=== PATIENT | female | born 1980 | race Hispanic/Latino ===

== ENCOUNTER 2019-01-02 22:00 | Emergency (ER) | payer SELFPAY ==
--- NOTE | 2019-01-03 00:20 | XRay Report ---
RIGHT ANKLE, 3 VIEWS 01/02/2019 INDICATION / CLINICAL INFORMATION: right ankle injury. COMPARISON: None available. FINDINGS: Small ascitic densities are identified at the level of the distal fibula. These are identified only i n one projection and could represent either avulsion injury or accessory ossicles. There is apparent soft tissue swelling over the lateral malleolus, correlate with the location of pat ient's symptoms. Signer Name: Frandy Cox MD Signed: 01/03/2019 12:16 AM Workstation Name: [id number]
[2019-01-03] MEDS ORDERED: NORCO 5/325 PO ONE (02:17)
--- NOTE | 2019-01-03 04:18 | Emergency Department Report ---
ED Lower Extremity HPI - General Chief Complaint: Extremity Injury, Lower Stated Complaint: ANKLE INJURY Time Seen by Provider: 01/03/19 02:15 Source: patient Mode of arrival: Ambulatory Limitations: No Limitations - History of Present Illness Initial Comments: pt is s 38 y/o w/f who presents s/p glf today cause eversion or right lateral ankle now with 5/10 right lateral ankle pain and swelling with dorsal foot swelling pt states unable to bear weight, there is no open wound no bleeding no abrasion. no numbness moderate tingling MD Complaint: ankle injury Onset/Timin -: hour(s) Injury: Ankle: Right Type of Injury: eversion Place: street/outdoors Severity: moderate Severity scale (0 -10): 5 Improves With: rest Worsens With: weight bearing, movement, palpation Context: fall Associated Symptoms: snap/pop sensation, swelling, tingling, unable to bear weight. denies: numbness - Related Data Previous Rx's Medication Instructions Recorded Last Taken Type HYDROcodone/APAP 5-325 [[place] 1 each PO Q6HR PRN #12 tablet 01/03/19 Unknown Rx 5-325 mg TAB] Allergies Allergy/AdvReac Type Severity Reaction Status Date / Time No Known Allergies Allergy Unverified 01/02/19 22:56 ED Review of Systems ROS: Stated complaint: ANKLE INJURY Other details as noted in HPI Constitutional: denies: chills, fever Eyes: denies: eye pain, eye discharge, vision change ENT: denies: ear pain, throat pain Respiratory: denies: cough, shortness of breath, wheezing Cardiovascular: denies: chest pain, palpitations Endocrine: no symptoms reported Gastrointestinal: denies: abdominal pain, nausea, diarrhea Genitourinary: denies: urgency, dysuria, discharge Musculoskeletal: joint swelling Skin: denies: rash, lesions Neurological: denies: headache, weakness, paresthesias Psychiatric: denies: anxiety, depression Hematological/Lymphatic: denies: easy bleeding, easy bruising ED Past Medical Hx - Past Medical History Previous Medical History?: Yes Additional medical history: hypothyroid - Surgical History Past Surgical History?: Yes Additional Surgical History: 1 - Social History Smoking Status: Never Smoker Substance Use Type: None - Medications Home Medications: Home Medications Medication Instructions Recorded Confirmed Last Taken Type HYDROcodone/APAP 5-325 [[place] 1 each PO Q6HR PRN #12 tablet 01/03/19 Unknown Rx 5-325 mg TAB] ED Physical Exam - General Limitations: No Limitations General appearance: alert, in no apparent distress - Head Head exam: Present: atraumatic, normocephalic - Eye Eye exam: Present: normal appearance - ENT ENT exam: Present: mucous membranes moist - Neck Neck exam: Present: normal inspection. Absent: tenderness, meningismus, full ROM, lymphadenopathy, thyromegaly - Respiratory Respiratory exam: Present: normal lung sounds bilaterally. Absent: respiratory distress, wheezes, rhonchi, chest wall tenderness - Cardiovascular Cardiovascular Exam: Present: regular rate, normal rhythm, normal heart sounds. Absent: systolic murmur, diastolic murmur, rubs, gallop - GI/Abdominal GI/Abdominal exam: Present: soft, normal bowel sounds. Absent: distended, tenderness, bruit, hernia - Rectal Rectal exam: Present: deferred - Extremities Exam Extremities exam: Present: full ROM, tenderness, joint swelling (right lateral ankle pain and swelling ). Absent: normal capillary refill, pedal edema, calf tenderness - Expanded Lower Extremity Exam Right Ankle exam: Present: full ROM, tenderness, swelling, ecchymosis. Absent: abrasion, laceration, deformity, crepidus, dislocation, erythema, anterior draw sign Foot/Toe exam: Present: full ROM, swelling, ecchymosis. Absent: tenderness, abrasion, laceration, deformity, crepidus, dislocation, erythema, amputation, puncture wound, foreign body, calcaneal tenderness, tenderness at base of 5th metatarsal, nail avulsion, subungual hematoma Neuro vascular tendon exam: Present: no vascular compromise. Absent: pulse deficit, motor deficit, sensory deficit, tendon deficit, pallor, foot drop - Back Exam Back exam: Present: normal inspection, full ROM. Absent: tenderness, CVA tenderness (R), CVA tenderness (L), muscle spasm, paraspinal tenderness, vertebral tenderness, rash noted - Neurological Exam Neurological exam: Present: alert, oriented X3, CN II-XII intact, normal gait, reflexes normal - Expanded Neurological Exam Expanded Patient oriented to: Present: person, place, time Speech: Present: fluid speech Cranial nerves: EOM's Intact: Normal, Gag Reflex: Normal, Tongue Deviation: Normal, Nystagmus: Normal, Facial Sensation: Normal Cerebellar function: Finger to Nose: Normal, Heel to Kwon: Normal, Romberg: Normal Upper motor neuron: Eber Neglect: Normal, Pronator Drift: Normal, Babinski Sign: Normal, Sensory Extinction: Normal Sensory exam: Lower Extremity Light Touch: Normal, Lower Extremity Pin Prick: Normal, Lower Extremity Temperature: Normal, LE 2 Point Discrimination: Normal Motor strength exam: RLE: 5, LLE: 5 DTR: knee (R): 2+, knee (L): 2+, ankle (R): 2+, ankle (L): 2+ Best Eye Response ([place]): (4) open spontaneously Best Motor Response ([place]): (6) obeys commands Best Verbal Response ([place]): (5) oriented [place] Total: 15 - Psychiatric Psychiatric exam: Present: normal affect, normal mood - Skin Skin exam: Present: warm, dry, intact, normal color. Absent: rash ED Course Vital Signs 01/02/19 01/03/19 22:50 02:45 Temperature 98.3 F Pulse Rate 97 H Respiratory 18 18 Rate Blood Pressure 154/86 O2 Sat by Pulse 100 Oximetry ED Lower Extremity MDM - Radiology Data Radiology results: report reviewed, image reviewed Ordering Physician: LISA RIGGINS MD Date of Service: 01/02/19 Procedure(s): XR ankle 3+V RT Accession Number(s): [id number] cc: ED MD VAISHNAVI Fluoro Time In Minutes: RIGHT ANKLE, 3 VIEWS 01/02/2019 INDICATION / CLINICAL INFORMATION: right ankle injury. COMPARISON: None available. FINDINGS: Small ascitic densities are identified at the level of the distal fibula. These are identified only in one projection and could represent either avulsion injury or accessory ossicles. There is apparent soft tissue swelling over the lateral malleolus, correlate with the location of patient's symptoms. Signer Name: Frandy Cox MD Signed: 01/03/2019 12:16 AM Workstation Name: [id number] Transcribed By: SUKHDEEP Dictated By: Frandy Cox MD Electronically Authenticated By: Frandy Cox MD Signed Date/Time: 01/03/19 0016 DD/ TD/TT: - Medical Decision Making xray possible closed distal fibula avulsion , plan: spling short leg paris pain is improved with medications given in ed, pt demonstrated safe use of crutches, splint will be completed prior dc to home pt demonstrated safe use of crutches. pt dc'd to home in stable condition at this time. 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 Critical care attestation.: If time is entered above; I have spent that time in minutes in the direct care o f this critically ill patient, excluding procedure time. ED Disposition Clinical Impression: Closed avulsion fracture of distal end of right fibula Qualifiers: Encounter type: initial encounter Qualified Code(s): S82.831A - Other fracture of upper and lower end of right fibula, initial encounter for closed fracture Disposition: DC-01 TO HOME OR SELFCARE Is pt being admited?: No Condition: Stable Instructions: Ankle Fracture (ED) Additional Instructions: follow up with orthopedics in 3-5 days, use crutches /splint, as directed return to emergency if symptoms worsen. Prescriptions: HYDROcodone/APAP 5-325 [[place] 5-325 mg TAB] 1 each PO Q6HR PRN #12 tablet PRN Reason: Pain Forms: Work/School Release Form(ED) Time of Disposition: 04:29
[2019-01-03 05:08] VITALS: BP 161/104
== END 2019-01-03 05:30 | disposition home or self-care (01) ==
LOC: ED 22:00
DX: S82.831A Other fracture of upper and lower end of right fibula, initial encounter for closed fracture (principal); E03.9 Hypothyroidism, unspecified; W19.XXXA Unspecified fall, initial encounter; Y93.89 Activity, other specified; Y92.410 Unspecified street and highway as the place of occurrence of the external cause; Y99.8 Other external cause status